=== PATIENT | male | born 1970 | race Caucasian/White ===

== ENCOUNTER 2024-03-25 00:35 | Inpatient (IN) | payer BC, SELFPAY ==
--- NOTE | 2024-03-24 23:49 | ADMGEN ---
This patient, Namrata Del Rio, was admitted to Medical Room 251-01. Patient/family oriented to hospital policies and general routines including ID bracelet, bed and alarms, visiting hours, pain management, procedures, bathroom and other care routines, personal items, smoking policy, room service/diet, and visiting hours. Information on how to activate the Rapid Response Team has been discussed. Patient/Family are encouraged to report perceived risks to care and to ask questions if they do not understand what they are told or what they should do.
[2024-03-24 23:50] VITALS: BP 127/72; PULSE 78; RESP 18; TEMP 37.1; O2SAT 98; BMI 27.0
--- NOTE | ~2024-03-25 | CT_ITS ---
EXAMINATION: CT abdomen wo/w con DATE: 03/26/2024 13:10 INDICATION: Right kidney mass. TECHNIQUE: Computed tomography (CT) of the abdomen was performed without and with 100 mL Omnipaque 35 0 intravenous contrast. Automated exposure control and iterative reconstruction technique were employ ed. The dose-length product was 656.03 mGy-cm. COMPARISON: CT abdomen and pelvis 03/24/2024 FINDINGS: The visualized portions of the lung bases are clear without pneumonia or pleural effusion. The heart size is normal. No pericardial effusion. The liver and spleen are normal. There are gallsto nilsa in the gallbladder, which is normal in size. The pancreas and adrenal glands are normal. There ar e cysts in the kidneys measuring up to 1.7 cm on the right. There is a 3.8 cm enhancing mass in right kidney. There are no dilated loops of bowel. The appendix is normal. There are no pathologically enl arged lymph nodes. There is no ascites. There is mild lumbar spondylosis. IMPRESSION: 1. 3.8 cm enhancing mass in right kidney, consistent with renal cell carcinoma. Reviewed, dictated and finalized at location A.
[2024-03-25 00:32] VITALS: PULSE 78; RESP 18; O2SAT 98
--- NOTE | 2024-03-25 00:55 | PM.IMHP ---
H&P: HPI History of Present Illness Date/Time: 03/25/24 00:55 Chief Complaint: abdominal pain Narrative: This is a 53-year-old male with past medical history significant for benign prostatic hyperplasia. Patient comes to the emergency room at outside facility due to abdominal pain, patient has had bowel movements, no hematemesis no coffee-ground emesis no hematochezia no bright red blood per rectum in, no changes in his stool character, no weight loss has been his usual state of health this has been going on roughly since morning time. Patient has had no oral intake denies nausea or vomiting. CT of abdomen and pelvis was significant for dilated bowel loops also kidney mass was found patient was transferred to our facility for further evaluation management and treatment. Review of Systems Review of Systems: abdominal pain, abdominal distention PMFSH Social History Social History Smoking status: Never smoker Alcohol intake: current Drinks per week: 20 Substance use: never Do You Feel Safe in your Home?: Yes Lack of Transportation: No Lack of Food: Never True Current Housing: I Have Housing Concerned About Future Housing: No Difficulty Paying Gas/Electric Bills: No Difficulty Paying for Meds: No Currently Unemployed: No Education: High School Diploma/GED Difficulty w/ Childcare or Family Care: No Spiritual care concerns: No Meds Home Medications and Allergies Home Medications Medication Instructions Recorded Confirmed Type aspirin 325 mg tablet 325 mg PO HS PRN Pain (Scale Score 03/25/24 03/25/24 History 1-3) ibuprofen 400 mg tablet 400 mg PO HS PRN Pain, Mild 03/25/24 03/25/24 History tamsulosin 0.4 mg capsule 0.4 mg PO DAILY 03/25/24 03/25/24 History zolpidem 5 mg tablet 5 mg PO HS 03/25/24 03/25/24 History Vital Signs Vital Signs - 24 hr 03/24/24 23:50 03/25/24 00:32 Temperature 98.7 F Pulse Rate 78 78 Respiratory Rate 18 18 Blood Pressure 127/72 Pulse Oximetry 98 98 Oxygen Delivery Room Air Exam Narrative: Patient is sitting Const: General: comfortable, no acute distress, well developed, alert, awake, average body habitus and other ( well-appearing) Nutritional Appearance: average body habitus Orientation/consciousness: patient oriented x3 HENMT: Head: normal to inspection, normocephalic and atraumatic Ears: hearing grossly normal bilaterally Face/Nose/Sinus: normal facial exam Face and sinus: normal facial exam Eyes: General: appearance normal, both eyes and all related structures Pupils: Equal, round and reactive pupils present EOM: EOMs intact bilaterally Neck: Neck: full ROM, no lymphadenopathy and no JVD Thyroid: thyroid normal Lymphatic: no lymphadenopathy noted Resp: Effort & Inspection: normal respiratory effort and able to speak in complete sentences Auscultation: clear to auscultation bilaterally Cardio: Jugular venous distension: no JVD Rate: regular rate Rhythm: regular rhythm Heart sounds: S1 normal heart sound present and S2 normal heart sound present GI: Inspection: distended and no visible herniation GI Palp: Yes Soft to palpation and Yes No hepatosplenomegaly present Percussion: Yes tympanic to percussion : General: Yes deferred Skin: Rashes: no rashes Wounds: no wounds Neuro: General: patient oriented x3 and CN's II-XI intact bilaterally Cranial nerves: Yes CN's II-XII intact bilaterally and Yes Equal, round and reactive pupils present Cognition (Neuro): normal cognition Speech: normal speech Gait exam (Neuro): Normal gait present Motor exam (neuro): 5/5 motor strength present throughout Extrem: General: normal to inspection, full ROM, no joint enlargement and no pedal edema Assessment and Plan Assessment and plan (1) Small bowel obstruction: Code(s): K56.609 - Unspecified intestinal obstruction, unspecified as to partial versus complete obstruction Status: Acute Assessment an
[2024-03-25] MEDS: DEXTROSE 5%/0.45% SOD CHL 1,000 ML 65 ML IV CONT ×2 (01:04→18:58)
[2024-03-25 01:10] LABS: Hematocrit 54.7 % (42.0-52.0); Hemoglobin 18.5 g/dL (14.0-18.0); Mean Corpuscular HGB Conc 33.8 g/dl (32-36); Mean Corpuscular Volume 94.5 fl (80-100); Mean Platelet Volume 9.4 fl (7.4-10.4); Platelet Count Result 259 k/mm3 (150-375); Red Blood Count 5.79 M/mm3 (4.6-6.20); White Blood Count 3.2 K/mm3 (4.5-10.0)
[2024-03-25] MEDS: ONDANSETRON INJ 4 MG/2 ML VIAL IV PUSH (01:13)
[2024-03-25] MEDS: MORPHINE SULFATE (*CRX) 2 MG/ML INJ IV PUSH (01:13)
[2024-03-25] MEDS: LORazepam INJ (*CRX) 2 MG/ML VIAL 1 MG IV PUSH (01:13)
[2024-03-25 01:20] LABS: Anion Gap 9 mmol/L (4-12); Blood Urea Nitrogen 13 mg/dL (9-20); Calcium 8.5 mg/dL (8.4-10.2); Carbon Dioxide 26 mmol/L (22-30); Chloride 101 mmol/L (98-107); Estimated CRCL calculation 67 ml/min; Estimated Glomerular Filt Rate > 60; Glucose 94 mg/dL (65-110); Phosphorus 2.6 mg/dL (2.5-4.5); Sodium 136 mmol/L (137-145)
[2024-03-25 01:23] LABS: INR 1.1; Partial Thromboplastin Time 28.5 Seconds (22.3-36.8); Prothrombin Time 14.8 Seconds (11.1-14.7)
[2024-03-25 01:37] LABS: Platelet Estimate Adequate (Adequate)
[2024-03-25 01:38] LABS: Band Neutrophils Percent 13 % (0-6); Basophils Absolute Manual 0.03 K/mm3 (0.0-0.1); Basophils Percent Manual 1 % (0-1); Eosinophils Absolute Manual 0.06 K/mm3 (0.02-0.50); Eosinophils Percent Manual 2 % (0-4); Lymphocytes Absolute Manual 0.64 K/mm3 (1.1-4.5); Lymphocytes Percent Manual 20 % (18-44); Monocytes Absolute Manual 0.86 K/mm3 (0.1-0.90); Monocytes Percent Manual 27 % (3-9); Neutrophils Percent Manual 37 % (46-73); Schistocytes None Seen; Total Cells Counted 100
[2024-03-25 05:28] VITALS: BP 110/74; PULSE 73; RESP 16; TEMP 36.8; O2SAT 98
[2024-03-25] MEDS: ENOXAPARIN 40 MG/0.4 ML SYRINGE SUB-Q (08:28)
--- NOTE | 2024-03-25 08:55 | PM.IMPN ---
Progress Note: A&P Assessment and Plan (1) Small bowel obstruction: Code(s): K56.609 - Unspecified intestinal obstruction, unspecified as to partial versus complete obstruction Status: Acute Assessment and Plan: NPO except for ice chips IV fluids general surgery consult supportive care 03/25- advance to clear liquid, monitor (2) Abdominal pain: Code(s): R10.9 - Unspecified abdominal pain Status: Acute Assessment and Plan: pain management (3) Abdominal distension: Code(s): R14.0 - Abdominal distension (gaseous) Status: Acute Assessment and Plan: likely secondary to small-bowel obstruction (4) Kidney mass: Code(s): N28.89 - Other specified disorders of kidney and ureter Status: Acute Assessment and Plan: accidental findings urology consult - CT showed a new lesion on the right kidney, and a stable cyst on the right kidney - recommended a f/u MRI. further workup as an outpatient- this will not prevent discharge Plan DVT prophylaxis: LOvenox 40mg sq Time Spent With Patient Time with patient: Greater than 35 minutes Subjective Date/time seen: 03/25/24 08:55 Interval history: Abd pain Narrative retrieved from H/P: Narrative: This is a 53-year-old male with past medical history significant for benign prostatic hyperplasia, insomnia. Patient comes to the emergency room at outside facility due to abdominal pain, patient has had bowel movements, no hematemesis no coffee-ground emesis no hematochezia no bright red blood per rectum in, no changes in his stool character, no weight loss has been his usual state of health this has been going on roughly since morning time. Patient has had no oral intake denies nausea or vomiting. CT of abdomen and pelvis was significant for dilated bowel loops also kidney mass was found patient was transferred to our facility for further evaluation management and treatment . 03/25- pt is seen and examined. General surgery was consulted for bowel obstruction and urology for kidney mass. NPO, IV fluids. was seen per surgery and started on clears. Had BM, reports no abd pain Review of Systems Review of Systems: abdominal pain, abdominal distention Exam Const: General: comfortable, no acute distress, well developed, alert, awake and average body habitus Nutritional Appearance: average body habitus Orientation/consciousness: patient oriented x3 HENMT: Head: normal to inspection, normocephalic and atraumatic Ears: hearing grossly normal bilaterally Face/Nose/Sinus: normal facial exam Face and sinus: normal facial exam Eyes: General: appearance normal, both eyes and all related structures Pupils: Equal, round and reactive pupils present EOM: EOMs intact bilaterally Neck: Neck: full ROM, no lymphadenopathy and no JVD Thyroid: thyroid normal Lymphatic: no lymphadenopathy noted Resp: Effort & Inspection: normal respiratory effort and able to speak in complete sentences Auscultation: clear to auscultation bilaterally Cardio: Jugular venous distension: no JVD Rate: regular rate Rhythm: regular rhythm Heart sounds: S1 normal heart sound present and S2 normal heart sound present GI: Inspection: distended and no visible herniation : General: Yes deferred Skin: Rashes: no rashes Wounds: no wounds Neuro: General: patient oriented x3 and CN's II-XI intact bilaterally Cranial nerves: Yes CN's II-XII intact bilaterally and Yes Equal, round and reactive pupils present Cognition (Neuro): normal cognition Speech: normal speech Gait exam (Neuro): Normal gait present Motor exam (neuro): 5/5 motor strength present throughout Extrem: General: normal to inspection, full ROM, no joint enlargement and no pedal edema Objective Data Vital Signs Vital Signs: Vital Signs - 24 hr 03/24/24 23:50 03/25/24 00:32 03/25/24 05:28 Temperature 98.7 F 98.3 F Pulse Rate 78 78 73 Respiratory Rate 18 18 16 Bloo
--- NOTE | 2024-03-25 09:44 | WPDURCON ---
Assessment and Plan Assessment and plan (1) Kidney mass: Code(s): N28.89 - Other specified disorders of kidney and ureter Status: Acute Assessment and Plan: Indeterminate right renal soft tissue density on CT of abdomen/pelvis without contrast at outside facility. Will further assess with CT abdomen/pelvis with and without contrast and determine appropriate follow up based on results. Urology Consult Note HPI Date Seen: 03/25/24 Requesting Physician: Maurilio Nj MD Primary Care Provider: Moy Sky MD Consult Narrative Narrative: Namrata Del Rio is a 53 year old male with a history of BPH who is currently admitted for small-bowel obstruction is being seen in consultation for right renal mass. The patient presented to [facility] with complaints of diffuse abdominal pain and was transferred to this facility for further evaluation. A CT of his abdomen/pelvis without contrast was completed at outside facility which incidentally noted a 3.8 x 3.4 right renal soft tissue density that was incompletely evaluated due to lack of contrast in addition to a 12 mm right renal cyst. Patient reports he has not been informed of any similar findings in the past and has had no other recent imaging. He denies back pain or flank pain. Denies dysuria or hematuria. He is a never smoker. He denies history of kidney stones. He continues on tamsulosin for BPH and reports his symptoms are well controlled. He has no family history of malignancy. He had a vasectomy approximately 10 years ago. Reports had an abnormal PSA in the past and completed prostate MRI and biopsy which was negative in 2021. He has been on IM testosterone replacement therapy for several years. He follows with Dr. Sky and Dr. Butler for these issues. Review of Systems Review of Systems: All systems reviewed & are unremarkable except as noted in HPI and below PMFSH Past Medical History Medical History BPH (benign prostatic hyperplasia) Insomnia Surgical History Surgical History History of inguinal hernia repair at age 1 Social History Social History Smoking status: Never smoker Alcohol intake: current Drinks per week: 20 Substance use: never Do You Feel Safe in your Home?: Yes Lack of Transportation: No Lack of Food: Never True Current Housing: I Have Housing Concerned About Future Housing: No Difficulty Paying Gas/Electric Bills: No Difficulty Paying for Meds: No Currently Unemployed: No Education: High School Diploma/GED Difficulty w/ Childcare or Family Care: No Spiritual care concerns: No Meds Home Medications and Allergies Home Medications Medication Instructions Recorded Confirmed Type aspirin 325 mg tablet 325 mg PO HS PRN Pain (Scale Score 03/25/24 03/25/24 History 1-3) ibuprofen 400 mg tablet 400 mg PO HS PRN Pain, Mild 03/25/24 03/25/24 History tamsulosin 0.4 mg capsule 0.4 mg PO DAILY 03/25/24 03/25/24 History zolpidem 5 mg tablet 5 mg PO HS 03/25/24 03/25/24 History Vital Signs Vital Signs - 24 hr 03/24/24 23:50 03/25/24 00:32 03/25/24 05:28 Temperature 98.7 F 98.3 F Pulse Rate 78 78 73 Respiratory Rate 18 18 16 Blood Pressure 127/72 110/74 Pulse Oximetry 98 98 98 Oxygen Delivery Room Air Results Labs 03/25/24 00:56 03/25/24 00:56 Labs: Short CBC 03/25/24 Range/Units 00:56 WBC 3.2 L (4.5-10.0) K/mm3 Hgb 18.5 H (14.0-18.0) g/dL Hct 54.7 H (42.0-52.0) % Plt Count 259 (150-375) k/mm3 [facility] 03/25/24 00:56 Sodium 136 L Potassium 4.0 Chloride 101 Carbon Dioxide 26 BUN 13 Creatinine 1.00 Glucose 94 Calcium 8.5
--- NOTE | 2024-03-25 10:56 | PM.CNGS ---
Assessment and Plan Assessment and plan (1) Small bowel obstruction: Code(s): K56.609 - Unspecified intestinal obstruction, unspecified as to partial versus complete obstruction Status: Acute Assessment and Plan: CT report from outlying facility was reviewed in his paper chart. I also asked the staff to upload the CT images from the disc to our system. CT suggests dilated small bowel loops with a transition point in the RLQ, consistent with at least a partial small bowel obstruction. The patient's abdominal pain and distention has improved since admission. NG tube has been deferred, which seems reasonable at this time since he is not vomiting. His abdominal exam is benign and he has not had any previous abdominal surgeries that would be concerning for significant intraabdominal adhesions. There is no clinical evidence of a high grade small bowel obstruction and he has had a bowel movement this morning. Will start him on a clear liquid diet and see how he tolerates oral intake. If he begins to develop obstructive symptoms, then we could consider ordering a water-soluble small bowel follow through to further evaluate the obstruction. Will continue to follow clinically with serial abdominal exams. No indication for any surgical intervention at this time. (2) Kidney mass: Code(s): N28.89 - Other specified disorders of kidney and ureter Status: Acute Assessment and Plan: CT abdomen pelvis without IV contrast showed a new lesion on the right kidney, as well as a stable cyst on the right kidney. Radiologist recommended a f/u MRI. Management per Hospitalist. Could have further workup as an outpatient. Discussed findings with the patient. Plan I have discussed the patient's case and plan of care with Dr. Cutler. Thank you for allowing us to see the patient in consultation and we will continue to follow along with you. History of Present Illness Consult details Consult date: 03/25/24 Reason for consult: other (Small-bowel obstruction) Requesting physician: Maurilio Nj MD Narrative: This is a 53-year-old man with PMH of BPH and insomnia, who presented to [facility] ED in [place] last night with complaints generalized abdominal pain x 2 days. 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 He initially thought he had some type of viral illness from being at the school. The following morning, he woke up with a poor appetite and mild generalized abdominal pain. He ate breakfast and tolerated this well, but did not eat the rest of the day due to poor appetite. No nausea or vomiting. His bowels were moving normally this day. Yesterday, his abdominal pain progressed and was coming in waves. He felt bloated and reports abdominal distension. No nausea or vomiting. Due to these complaints, he came into the ED for evaluation. CT scan of the abdomen and pelvis at the outlying facility showed at least a partial small bowel obstruction with transition point in the right lower quadrant. In review of the radiology report in his medical chart, other incidental findings on the CT scan include a small right inguinal hernia containing fat, enlarged prostate, right kidney cyst and a new lesion on the right kidney that is difficult to differentiate without IV contrast, hepatic steatosis, and cholelithiasis with an otherwise normal-appearing gallbladder. The patient was transferred to our facility and admitted by the hospitalist service. Our service was consulted for the small-bowel obstruction. He is now seen on the medical floor. They deferred NG tube placement. He is feeling much better today and feels that his bloating has improved. He feels less distended and denies any nausea or vomiting. He is actually had a loose bowel movement this morning. He reports chronically having loose stools. Denies any blood noted in his stool. Denies any pre
[2024-03-25] MEDS: ACETAMINOPHEN 325 MG TABLET 650 MG PO (11:35)
[2024-03-25 14:48] VITALS: BP 112/74; PULSE 73; RESP 16; TEMP 36.8; O2SAT 97
[2024-03-25 22:00] VITALS: BP 130/65; PULSE 63; RESP 18; TEMP 36.7; O2SAT 100
[2024-03-26 06:00] VITALS: BP 128/79; PULSE 65; RESP 18; TEMP 36.3; O2SAT 100
[2024-03-26] MEDS: ENOXAPARIN 40 MG/0.4 ML SYRINGE SUB-Q (08:25)
--- NOTE | 2024-03-26 09:39 | WPDUROPN2 ---
Progress Note: A&P Assessment and Plan (1) Kidney mass: Code(s): N28.89 - Other specified disorders of kidney and ureter Status: Acute Assessment and Plan: Indeterminate right renal soft tissue density on CT of abdomen/pelvis without contrast at outside facility. Will further assess with CT abdomen with and without contrast. Awaiting completion today. Will review results and determine appropriate outpatient follow up. Okay for discharge from urologic standpoint pending completion of CT Subjective Subjective Date/Time Seen: 03/26/24 09:39 Interval history: Feeling well today. Offers no concerns. Reports abdominal pain has resolved and he is tolerating diet. Denies flank pain or back pain. No urinary symptoms. Review of Systems Review of Systems: All systems reviewed & are unremarkable except as noted in HPI and below Exam Narrative: General: Awake, alert, comfortable, no acute distress HEENT: Normocephalic, atraumatic, sclerae anicteric Respiratory: Normal respiratory effort, no accessory muscle use Abdomen: Nondistended, soft, nontender Skin: Normal coloration, warm and dry Neurologic: No focal neuro deficits noted Psychiatric: Appropriate mood and affect, judgment and insight intact Objective Data Vital Signs Vital Signs: Vital Signs - 24 hr 03/25/24 14:48 03/25/24 22:00 03/25/24 20:35 Temperature 98.2 F 98.1 F Pulse Rate 73 63 Respiratory Rate 16 18 Blood Pressure 112/74 130/65 Pulse Oximetry 97 100 Oxygen Delivery Room Air 03/26/24 06:00 Temperature 97.4 F L Pulse Rate 65 Respiratory Rate 18 Blood Pressure 128/79 Pulse Oximetry 100 Oxygen Delivery Intake/Output Intake/Output: Intake & Output 03/23/24 03/24/24 03/25/24 03/26/24 23:59 23:59 23:59 23:59 Intake Total 2570 Output Total 700 150 Balance 1870 -150 Meds/Results Medications: Active Medications Generic Name Dose Route Start Last Admin Trade Name Freq PRN Reason Stop Dose Admin Acetaminophen 650 mg 03/25/24 11:24 03/25/24 11:35 Acetaminophen 325 Mg Tablet PO 650 mg Q4H PRN Administration Mild Pain (1-3) or Fever Enoxaparin Sodium 40 mg 03/25/24 09:00 03/26/24 08:25 Enoxaparin 40 Mg/0.4 Ml Syringe SUB-Q 40 mg DAILY CHELLY Administration Morphine Sulfate 2 mg 03/25/24 00:35 03/25/24 01:13 Morphine Sulfate (*Crx) 2 Mg/Ml Inj IV PUSH 2 mg Q4H PRN Administration Pain Rated 7-10 Ondansetron HCl 4 mg 03/25/24 00:35 03/25/24 01:13 Ondansetron Inj 4 Mg/2 Ml Vial IV PUSH 4 mg Q6H PRN Administration Nausea And Vomiting
--- NOTE | 2024-03-26 10:37 | PM.PNGS ---
Progress Note: A&P Assessment and Plan (1) Small bowel obstruction: Code(s): K56.609 - Unspecified intestinal obstruction, unspecified as to partial versus complete obstruction Status: Acute Assessment and Plan: Patient's symptoms have resolved. Bowels are moving. No abdominal pain and his abdominal exam is benign. He is tolerating a regular diet. Okay from a surgical standpoint to discharge the patient. No follow-up needed. (2) Kidney mass: Code(s): N28.89 - Other specified disorders of kidney and ureter Status: Acute Assessment and Plan: Urology following and ordered CT to further evaluate. Plan I have discussed the patient's case and plan of care with Dr. Cutler. Subjective Subjective Date/Time Seen: 03/26/24 10:37 Patient reports: no new complaints, tolerating a regular diet, flatus and bowel movement Interval history: Doing well overnight. No abdominal pain, nausea, or vomiting. Bloating improved. Exam GI: Inspection: non-distended GI Palp: Yes Soft to palpation, No Tenderness to palpation present (GI), No Guarding due to palpation present (GI) and No Rebound tenderness present Auscultation: normal bowel sounds Objective Data Vital Signs Vital Signs: Vital Signs - 24 hr 03/25/24 14:48 03/25/24 22:00 03/25/24 20:35 Temperature 98.2 F 98.1 F Pulse Rate 73 63 Respiratory Rate 16 18 Blood Pressure 112/74 130/65 Pulse Oximetry 97 100 Oxygen Delivery Room Air 03/26/24 06:00 03/26/24 08:00 Temperature 97.4 F L Pulse Rate 65 Respiratory Rate 18 Blood Pressure 128/79 Pulse Oximetry 100 Oxygen Delivery Room Air Intake/Output Intake/Output: Intake & Output 03/23/24 03/24/24 03/25/24 03/26/24 23:59 23:59 23:59 23:59 Intake Total 2570 Output Total 700 150 Balance 1870 -150 Meds/Results Medications: Active Medications Generic Name Dose Route Start Last Admin Trade Name Freq PRN Reason Stop Dose Admin Acetaminophen 650 mg 03/25/24 11:24 03/25/24 11:35 Acetaminophen 325 Mg Tablet PO 650 mg Q4H PRN Administration Mild Pain (1-3) or Fever Enoxaparin Sodium 40 mg 03/25/24 09:00 03/26/24 08:25 Enoxaparin 40 Mg/0.4 Ml Syringe SUB-Q 40 mg DAILY CHELLY Administration Morphine Sulfate 2 mg 03/25/24 00:35 03/25/24 01:13 Morphine Sulfate (*Crx) 2 Mg/Ml Inj IV PUSH 2 mg Q4H PRN Administration Pain Rated 7-10 Ondansetron HCl 4 mg 03/25/24 00:35 03/25/24 01:13 Ondansetron Inj 4 Mg/2 Ml Vial IV PUSH 4 mg Q6H PRN Administration Nausea And Vomiting
--- NOTE | 2024-03-26 12:11 | P.PN_ITS ---
Progress Note: A&P Assessment and Plan (1) Small bowel obstruction: Code(s): K56.609 - Unspecified intestinal obstruction, unspecified as to partial versus complete obstruction Status: Acute Assessment and Plan: Patient's initial imaging results were consistent with a early partial small- bowel obstruction. Is now resolved and he is tolerating regular diet having bowel function. No need for surgical intervention. He can be discharged today from general surgery standpoint. No need for follow-up with General surgery. Subjective Date/time seen: 03/26/24 12:11 Interval history: Patient is doing well today. He has tolerated solid food and had a bowel movement this morning. No abdominal pain and no nausea. He is waiting to get a CT scan done today for follow-up of a right renal mass. He is set to be discharged after the CT scan. Exam GI: Other: Patient's abdomen is soft and nondistended. It is nontender. Benign exam. Objective Data Vital Signs Vital Signs: Vital Signs - 24 hr 03/25/24 14:48 03/25/24 22:00 03/25/24 20:35 Temperature 36.8 C 36.7 C Pulse Rate 73 63 Respiratory Rate 16 18 Blood Pressure 112/74 130/65 Pulse Oximetry 97 100 Oxygen Delivery Room Air 03/26/24 06:00 03/26/24 08:00 Temperature 36.3 C L Pulse Rate 65 Respiratory Rate 18 Blood Pressure 128/79 Pulse Oximetry 100 Oxygen Delivery Room Air Intake/Output Intake/Output: Intake & Output 03/23/24 03/24/24 03/25/24 03/26/24 23:59 23:59 23:59 23:59 Intake Total 2570 240 Output Total 700 150 Balance 1870 90 Meds/Results Medications: Active Medications Generic Name Dose Route Start Last Admin Trade Name Freq PRN Reason Stop Dose Admin Acetaminophen 650 mg 03/25/24 11:24 03/25/24 11:35 Acetaminophen 325 Mg Tablet PO 650 mg Q4H PRN Administration Mild Pain (1-3) or Fever Enoxaparin Sodium 40 mg 03/25/24 09:00 03/26/24 08:25 Enoxaparin 40 Mg/0.4 Ml Syringe SUB-Q 40 mg DAILY CHELLY Administration Morphine Sulfate 2 mg 03/25/24 00:35 03/25/24 01:13 Morphine Sulfate (*Crx) 2 Mg/Ml Inj IV PUSH 2 mg Q4H PRN Administration Pain Rated 7-10 Ondansetron HCl 4 mg 03/25/24 00:35 03/25/24 01:13 Ondansetron Inj 4 Mg/2 Ml Vial IV PUSH 4 mg Q6H PRN Administration Nausea And Vomiting
--- NOTE | 2024-03-26 12:28 | PM.DS ---
DS: Admitting Diagnosis Discharge Date 03/26 Admitting Diagnosis abd pain DS: Discharge Diagnosis Discharge Diagnosis (1) Kidney mass: Code(s): N28.89 - Other specified disorders of kidney and ureter Status: Acute Assessment and Plan: Indeterminate right renal soft tissue density on CT of abdomen/pelvis without contrast at outside facility. Will further assess with CT abdomen with and without contrast. Awaiting completion today. Will review results and determine appropriate outpatient follow up. Okay for discharge from urologic standpoint pending completion of CT (2) Small bowel obstruction: Code(s): K56.609 - Unspecified intestinal obstruction, unspecified as to partial versus complete obstruction Status: Acute Assessment and Plan: npo/iv fluids -surgery consult (3) Abdominal pain: Code(s): R10.9 - Unspecified abdominal pain Status: Acute Assessment and Plan: resolved DS: Summary Hospital Course Hospital Course: Narrative: This is a 53-year-old male with past medical history significant for benign prostatic hyperplasia, insomnia. Patient comes to the emergency room at outside facility due to abdominal pain, patient has had bowel movements, no hematemesis no coffee-ground emesis no hematochezia no bright red blood per rectum in, no changes in his stool character, no weight loss has been his usual state of health this has been going on roughly since morning time. Patient has had no oral intake denies nausea or vomiting. CT of abdomen and pelvis was significant for dilated bowel loops also kidney mass was found patient was transferred to our facility for further evaluation management and treatment . 03/25- pt is seen and examined. General surgery was consulted for bowel obstruction and urology for kidney mass. NPO, IV fluids. was seen per surgery and started on clears. Had BM, reports no abd pain Urology consulted: right renal soft tissue density on CT of abdomen/pelvis without contrast at outside facility. Will further assess with CT abdomen with and without contrast. Awaiting completion today. Will review results and determine appropriate outpatient follow up. Okay for discharge from urologic standpoint pending completion of CT surgery ok with discjarge, no f/u needed with them unless symptoms return/worsen Time spent discussing smoking cessation with patient: 3 to 10 minutes Status at Discharge Functional status at discharge: independent ambulation Overall status at discharge: patient is back to baseline Time Spent with Patient Time attestation: Total time spent providing and/or coordinating discharge services: Time spent: Greater than 30 minutes Exam Narrative: General: Awake, alert, comfortable, no acute distress HEENT: Normocephalic, atraumatic, sclerae anicteric Respiratory: Normal respiratory effort, no accessory muscle use Abdomen: Nondistended, soft, nontender Skin: Normal coloration, warm and dry Neurologic: No focal neuro deficits noted Psychiatric: Appropriate mood and affect, judgment and insight intact Const: General: comfortable, no acute distress, well developed, alert, awake, average body habitus and other ( well-appearing) Nutritional Appearance: average body habitus Orientation/consciousness: patient oriented x3 HENMT: Head: normal to inspection, normocephalic and atraumatic Ears: hearing grossly normal bilaterally Face/Nose/Sinus: normal facial exam Face and sinus: normal facial exam Eyes: General: appearance normal, both eyes and all related structures Pupils: Equal, round and reactive pupils present EOM: EOMs intact bilaterally Neck: Neck: full ROM, no lymphadenopathy and no JVD Thyroid: thyroid normal Lymphatic: no lymphadenopathy noted Resp: Effort & Inspection: normal respiratory effort and able to speak in complete sentences Auscultation: clear to auscultation bilaterally Cardio: Jugular venous distension: no
== END 2024-03-26 13:45 | disposition home or self-care (01) | DRG 390 ==
PROVIDERS: Admitting Provider Internal Medicine; PCP Urology; Visit Provider Nurse Practitioner
DX: K56.609 Unspecified intestinal obstruction, unspecified as to partial versus complete obstruction (principal); N28.89 Other specified disorders of kidney and ureter; N40.0 Benign prostatic hyperplasia without lower urinary tract symptoms; Z79.82 Long term (current) use of aspirin
CPT/HCPCS: 36415; 74170; 80048; 83735; 84100; 85025; 85610; 85730; A9270; J1650; J2060; J2270; J2405; Q9967